=== PATIENT | female | born 1975 | race Caucasian/White ===

== ENCOUNTER → 2017-06-26 | Day surgery (SDC) | payer OTHER ==
[~2017-06-26] VITALS: Ht 160 cm; Wt 103.6 kg
[~2017-06-26] MED LIST: BIOT10003 PO; Bacitracin 50,000 unit Inj IRRIGATION ONE; Bacitracin Ointment Packet TOPICAL ONE; Bupivacaine-MPF 0.25% 30 mL Inj INFILTRATE ONE; CYAN500 PO; Dexamethasone 4 mg/mL Inj IVPUSH PRN; EPHEDrine Sulfate 50 mg/mL Inj IVPUSH PRN; FERR325T40 PO; GLUC1KIT IJ; HYDROcodone-APAP 5-325 mg Tablet PO PRN; HYDROmorphone 1 mg/mL Inj IVPUSH PRN; INSU100C11 SUBQ; INSU100C8 SUBQ; Lactated Ringer's 1,000 ML IV SCH; Lactated Ringer's 500 ML IV PRN; Lidocaine 1% 50 mL Inj INFILTRATE ONE; MULT-1018 PO; MetoCLOpramide 5 mg/mL 2 mL Inj IVPUSH PRN; Ondansetron 2 mg/mL 2 mL Inj IVPUSH PRN; Phenylephrine 10,000 mCg/mL Inj IVPUSH PRN; VIT-5 PO; fentaNYL-PF 50 mCg/mL 2 mL Inj IVPUSH PRN
[2017-06-26] MEDS: Lactated Ringer's 1,000 ML IV SCH ×2 (08:38→11:05)
[2017-06-26 09:07] VITALS: BP 128/76; PULSE 63; RESP 18; O2SAT 99
--- NOTE | 2017-06-26 11:30 | PCM.HPANE ---
Patient Data Date of Service: Jun 26, 2017 Surgeon Admitting Provider: Attending Provider:Jonnie Power MD Primary Care Physician:Sundeep Morin MD Other Provider:Srinivasa Dougherty Anesthesia Reason for Visit Right Carpal Tunnel Syndrome Ht/WT & BMI Height (Feet): 5 Height (Inches): 3.00 Weight (Kilograms): 103.6 Body Mass Index 40.00 Allergies Coded Allergies: Penicillins (Verified Allergy, Unknown, hives, swelling, 06/19/17) fluconazole (Verified Allergy, Unknown, swelling, 06/19/17) sulfamethoxazole (Verified Allergy, Unknown, migraine, nausea, 06/19/17) trimethoprim (Verified Allergy, Unknown, migraine, nausea, 06/19/17) Past Anesthesia History Anesthesia History: Denies:: Abnormal Airway, Anesthesia Reactions (nauseated, sick ), Difficult Intubation, Fam Anesthesia Reaction Diabetes History Hx Diabetes?: Yes Type of Diabetes: Type I Glycemic Control: Insulin Pump Current Bedside Blood Glucose: 184 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 ) Medications Hypertension Medication: No Home Meds Incl Beta Belkis: No Reported Medications Glucagon,Human Recombinant (Glucagon Emergency Kit)1 Mg Kit1 Mg IJ PRN blood sugar 06/19/17 Insulin Aspart (NovoLOG U100 Insulin Vial)100 U/Ml UUnknown Dose SUBQ ASDIRECTED PRN blood glucose #1 VIAL Ref 0 06/19/17 Cyanocobalamin (Vitamin B12)500 Mcg Tablet1,000 Mcg PO DAILY 06/19/17 Multivitamin (Multi Vitamin Daily)1 Each Tablet1 Each PO DAILY 30 Days Ref 0 06/19/17 Ferrous Sulfate (Iron)325 Mg Etnldn278 Mg PO DAILY 06/19/17 Insulin Lispro (HumaLOG U100 Insulin Cartridge Refill)100 Unit/1 Ml Cartridge1 Unit SUBQ continuously PRN blood sugar #1 PKG Ref 0 Blood Sugar Lispro Correction <151 0 units 151-175 1 unit 176-200 2 units 201-225 3 units 226-250 4 units 251-275 5 units 276-300 6 units 301-325 7 units 326-350 8 units 351-375 9 units 376-400 10 units >400 12 units Check blood sugars before meals and at bedtime. Use correction factor only before meals. 06/19/17 Biotin 10,000 Mcg Pzhqusb64,000 Mcg PO DAILY 06/19/17 Vit A/Vit C/Vit E/Selenium Yst (Antioxidant Formula Tablet)8,333-875 Tablet1 Each PO DAILY 06/19/17 Discontinued Reported Medications Metoclopramide-Expunged Drug, Do Not Renew! (Reglan-Expunged Drug, Do Not Renew! )5 Mg Tablet5 Mg PO PRN 12/07/10 Insulin Lispro-Expunged Drug, Do Not Renew! (Humalog-Expunged Drug, Do Not Renew !)100 U/Ml Vial U Sq 12/07/10 Vit/Fe Fumarate/Fa-Expunged Drug, Do (-Expunged Drug, Do Not Renew!)1 Each Tablet1 Each PO DAILY 12/07/10 Levothyroxine-Expunged Drug, Do Not Renew! (Levoxyl-Expunged Drug, Do Not Renew! )25 Mcg Tablet0.5 Mcg PO DAILY 12/07/10 History History of ENT Problems?: No HEENT History: Denies:: Abnormal Airway Cataracts Difficult Intubation Dysphagia Glaucoma Hearing Problem Sinus Problem TMJ Denture Type: None Teeth Condition: Within Normal Limits Other HEENT Pertinent History: diabetic retinopathy - being monitored upper right molar, cap has come off - not sensitive- Hx of Heart Problems?: No Cardiovascular History: Denies:: AICD Abdominal Aortic Aneurism Chest Pain Congestive Heart Failure Edema Heart Murmur Hypertension Irregular Heartbeat Pacemaker Peripheral Vascular Hx of Respiratory Problem?: No Respiratory History: Denies:: Asthma COPD Emphysema Oxygen Administration Pneumonia Tuberculosis Use of C-PAP Machine Hx Neurologic Problems?: No Neurological History: Denies:: CVA Headaches Multiple Sclerosis Parkinson's Disease Seizures Hx of GI Problems?: Yes Other GI Pertinent History: hx of 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 Skin History: Denies:: History Skin Disorders? Pressure Ulcers Hx Musculoskeletal Problems?: No Musculoskeletal History: Denies:: Back Injury Degenerative Joint Fibromyalgia Joint Replacement Musculoskeletal Trauma Myasthenia Gravis Osteoarthritis Hx of Psycho/Social Problems?: No Psycho Social History: Denies:: Anxiety Hx Depression Hx Surgeries?: Yes (gastric bypass, yany) Hx Any Other Health Problems?: Yes Other History: Denies:: Cancer Endocrine Disease Hospitalization Thyroid Disease History Blood Transfusions: Positive for:: Accept Blood Products? Denies:: Blood Transfusions Hx Diabetes: YesBedside Blood Glucose: 184 Hx Alcohol Use: NoHx Substance Use: NoHave You Smoked inLast 12 mo: No Stop/Bang Treated for Sleep Apnea?: No Do You Have a CPAP Machine?: No S-Snoring: Do You Snore Loudly: No T-Tired: feel tired, fatigued: No O-Obsered: Observed not breath: No P-Blood Pressure: treated: No B- Body Mass Index > 35 kg/m2: Yes A- Age over 50: No N- Neck Large Circumference: No G- Gender Male: No FAMILIA Total Score: 1 FAMILIA Risk Assessment: Low Risk, <3 Yes Risk Assessment Category Category 1A: Patient has history of documented sleep apnea, and HAS NOT received any narcotic, sedative or anesthesia administration during this stay. Category 1B: Patient has history of documented sleep apnea, and HAS received any narcotic , sedative or anesthesia administration during this stay Category 2: Patient has SUSPECTED Obstructive Sleep Apnea, and HAS received any narcotic , sedative or anesthesia administration during this stay. Category 3: Patient has SUSPECTED Obstructive Sleep Apnea and HAS NOT received narcotic, sedative or anesthesia administration during this stay. Category 4: Outpatient in Procedural Areas with known sleep apnea or who screen positive for High Risk via the STOP/BANG questionnaire. Exam Exam Vital Signs Vital Signs Date Time Temp Pulse Resp B/P Pulse Ox O2 Delivery O2 Flow Rate FiO2 06/26/17 09:07 36.0 63 18 128/76 99 Room Air General Appearance: Alert HEENT/AIRWAY: MP 1 Lungs: Clear to Auscultation Heart: Exam Unremarkable Meds/Labs/Diagnostics Admission Meds Current Medications Lactated Ringer's (Lr) 1,000 ml @ 120 mls/hr Q8H20M IV Last administered on 11:05; Start 06/26/17 at 05:00; Stop 06/26/17 at 13:19 Bupivacaine HCl (Sensorcaine-MPF 0.25% Inj) 30 ml STK-MED ONCE INFILTRATE Last administered on 06/26/17 11:14; Start 06/26/17 at 11:14; Stop 06/26/17 at 11:21 ; Status DC Lidocaine HCl (Xylocaine 1% Inj) 30 ml STK-MED ONCE INFILTRATE Last administered on 06/26/17t 11:15; Start 06/26/17 at 11:15; Stop 06/26/17 at 11:21 ; Status DC Bacitracin (Bacitracin Ointment) 1 applic STK-MED ONCE TOPICAL Last administered on 06/26/17t 11:16; Start 06/26/17 at 11:16; Stop 06/26/17 at 11:24 ; Status DC Bedside Blood Glucose: 184 Plan Impression Patient chart reviewed, patient interviewed and anesthestic plan with risks, benefits, and alternatives discussed, and informed consent obtained. NPO per Anesth. Guidelines: Yes ASA Physical Status: ASA2 Mod Systemic Disease Anesthetic Plan: MAC Bene/Risks/Altern/Consents: Yes HP Complete Prior to Induction: Yes Ruslan Borden MD Jun 26, 2017 11:30
[2017-06-26 11:45] VITALS: BP 108/57; PULSE 67; RESP 18; O2SAT 98
[2017-06-26 12:36] VITALS: BP 119/58; PULSE 86; RESP 18; O2SAT 98
--- NOTE | 2017-06-26 13:06 | PCM.ANEP1 ---
Post Anesthesia PACU Phase 1 Assessment Vital Signs Vital Signs Date Time Temp Pulse Resp B/P Pulse Ox O2 Delivery O2 Flow Rate FiO2 06/26/17 12:36 86 18 119/58 98 Room Air 06/26/17 11:45 36.7 67 18 108/57 98 Room Air 06/26/17 09:07 36.0 63 18 128/76 99 Room Air Anesthetic Administered: MAC Level of Alertness: Awake, talking Pain: No Nausea or Vomiting: No CV Function & Hydration Stable: Yes Airway Device: Oxygen Delivery: Room Air Lungs: Clear to Auscultation PACU Phase 2 Assessment Patient Instructions Provided: Yes Ruslan Borden MD Jun 26, 2017 13:06
--- NOTE | 2017-06-27 18:21 | OP ---
[address] [address] OPERATIVE REPORT PATIENT: [place] : 1975 MR#: [id number] ADMIT: 06/26/2017 JOB ID: [id number] DATE OF SURGERY: 06/26/2017 PREOPERATIVE DIAGNOSIS(ES): Right carpal tunnel syndrome. POSTOPERATIVE DIAGNOSIS(ES): Right carpal tunnel syndrome. PROCEDURE: Right carpal tunnel release. SURGEON: Jonnie Power MD DELIVERY COORDINATOR: None. ANESTHESIA: MAC with local. COMPLICATIONS: None apparent. SPECIMEN: None. DRAINS: None. ESTIMATED BLOOD LOSS: Minimal. INDICATIONS FOR PROCEDURE: This is a 42-year-old female patient with history, examination findings, and electrodiagnostic studies confirming a right carpal tunnel syndrome. At this point carpal tunnel release is indicated for symptom relief. PROCEDURES AND FINDINGS: The patient was identified in the preoperative area and the surgical site was marked. The patient was then taken back to the operating room and placed supine on the operating table. Appropriate time-outs were taken. MAC was induced smoothly. The patient was then prepped and draped in the usual sterile manner. Local anesthesia was then infiltrated to the surgical site consisting of Marcaine and lidocaine. The patient's right upper extremity was then exsanguinated and the tourniquet inflated to 250 mmHg. An open carpal tunnel incision was then made starting at the junction of the ring finger ray with the Darling cardinal line, extending 2 cm proximally. This was done with a 15 blade. The incision was then deepened bluntly and sharply down to the superficial palmar fascia, which was split with a #15 blade. I then performed blunt dissection with Ragnell retractors to deepen the incision down to the transverse carpal ligament. It was noted that the ulnar edge of the thenar muscle was attaching to the transverse carpal ligament quite ulnarly. This was peeled off the transverse carpal ligament using the blade of a #15 blade as well as bipolar electrocautery to create an area for division. Once this had been done, I divided the distal edge of the transverse carpal ligament with a #15 blade in a layer by layer manner until the carpal tunnel was entered. The proximal portion of the transverse carpal ligament was isolated using the pilots from the Peggy [place] set. Once this had been done, it was split using the [place]. The carpal tunnel was examined and the nerve was found to be intact. The roof of the tunnel was palpated and was found to be widely open. Tourniquet was released and hemostasis was obtained with bipolar electrocautery. The incision was then reapproximated using several 4-0 nylon horizontal mattress sutures. The patient was then placed into a small volar splint. The patient tolerated the procedure well. Needle count, sponge count, and instrument counts were correct at the end of the procedure. The patient was transported to recovery in stable condition.
== END | disposition home or self-care (01) ==
LOC: SAS 08:31
PROVIDERS: ATTEND Plastic Surgery
DX: G56.01 Carpal tunnel syndrome, right upper limb (principal); E10.319 Type 1 diabetes mellitus with unspecified diabetic retinopathy without macular edema; Z98.84 Bariatric surgery status; Z79.4 Long term (current) use of insulin; Z79.899 Other long term (current) drug therapy